=== PATIENT | male | born 1980 | race Hispanic/Latino ===

== ENCOUNTER 2018-11-22 21:14 | Emergency (ER) | payer SELFPAY ==
--- NOTE | 2018-11-22 21:21 | Emergency Department Report ---
Blank Doc - Documentation Documentation: This is a 38-year-old male that presents with SI. Denies HI. Denies having a plan. This initial assessment/diagnostic orders/clinical plan/treatment(s) is/are subject to change based on patient's health status, clinical progression and re- assessment by fellow clinical providers in the ED. Further treatment and workup at subsequent clinical providers discretion. Patient/guardians urged not to elope from the ED as their condition may be serious if not clinically assessed and managed. Initial orders include: 1- Patient sent to MAIN ED for further evaluation and treatment 2- claims administrator was notified to have patient be brought back [facility]. 3- RN was notified to keep patient as close range and observation until room available 4- Patient presents with substantial risk of imminent harm to self, appears to be so unable to care for his/her own physical health and safety as to create an imminently life-endangering crisis, and has committed/expressed life endangering crisis to self. Due to this and other complaints, patient is put on 1013.
[2018-11-22 21:43] LABS: Basophils # (Auto) 0.1 K/mm3 (0.0-0.1); Basophils % (Auto) 0.9 % (0.0-1.8); Eosinophils # (Auto) 0.1 K/mm3 (0.0-0.4); Eosinophils % (Auto) 1.6 % (0.0-4.3); Hematocrit 40.8 % (35.5-45.6); Hemoglobin 13.6 gm/dl (11.8-15.2); Lymphocytes # (Auto) 3.3 K/mm3 (1.2-5.4); Lymphocytes % (Auto) 44.5 % (13.4-35.0); Mean Corpuscular HGB Conc 33 % (32-34); Mean Corpuscular Volume 84 fl (84-94); Monocytes # (Auto) 0.6 K/mm3 (0.0-0.8); Monocytes % (Auto) 8.3 % (0.0-7.3); Platelet Count 258 K/mm3 (140-440); Red Blood Count 4.86 M/mm3 (3.65-5.03); Red Cell Distribution Width 14.4 % (13.2-15.2)
--- NOTE | 2018-11-22 22:03 | Emergency Department Report ---
ED Psych HPI - General Chief Complaint: Psych Stated Complaint: MH Time Seen by Provider: 11/22/18 21:20 Source: patient Mode of arrival: Ambulatory Limitations: No Limitations - History of Present Illness Initial Comments: 38-year-old male with a past medical history of bipolar disorder off medications for 2 months presents complaining of auditory hallucinations and suicidal ideation. Patient has been suicidal 1 day. He is hearing voices as a negative things to him. He has no plan and denies previous suicide attempt. Patient also states he suffers from social anxiety and has bad anxiety attacks. He denies any physical complaints at this time. Pt states he does have a place to live and is not homeless - Related Data Home Medications Medication Instructions Recorded Confirmed Last Taken Dextroamphetamine/Amphetamine 20 mg PO DAILY 11/22/18 11/22/18 Unknown [Adderall] FLUoxetine HCL [PROzac] 80 mg PO QDAY 11/22/18 11/22/18 Unknown clonazePAM [Klonopin] 0.5 mg PO BID 11/22/18 11/22/18 Unknown Allergies Allergy/AdvReac Type Severity Reaction Status Date / Time No Known Allergies Allergy Unverified 11/22/18 21:21 ED Review of Systems ROS: Stated complaint: MH Other details as noted in HPI Comment: All other systems reviewed and negative ED Past Medical Hx - Past Medical History Previous Medical History?: Yes Hx Psychiatric Treatment: Yes (Bipolar) - Surgical History Past Surgical History?: No - Social History Smoking Status: Unknown if ever smoked Substance Use Type: None - Medications Home Medications: Home Medications Medication Instructions Recorded Confirmed Last Taken Type Dextroamphetamine/Amphetamine 20 mg PO DAILY 11/22/18 11/22/18 Unknown History [Adderall] FLUoxetine HCL [PROzac] 80 mg PO QDAY 11/22/18 11/22/18 Unknown History clonazePAM [Klonopin] 0.5 mg PO BID 11/22/18 11/22/18 Unknown History ED Physical Exam - General Limitations: No Limitations - Other Other exam information: General: No limitations, patient is alert in no acute distress Head exam: Atraumatic, normocephalic Eyes exam: Normal appearance ENT: Moist mucous membrane Neck exam: Normal inspection, full range of motion, no meningismus nontender Respiratory exam: Very minimal end expiratory wheezing, no shortness of breath o r respiratory distress Cardiovascular: Normal rate and rhythm, normal heart sounds Abdomen: Soft, nondistended, and nontender, with normal bowel sounds, no rebound, or guarding Extremity: Full range of motion normal inspection no deformity Back: Normal Inspection, full range of motion, no tenderness Neurologic: Alert, oriented x3, cranial nerves intact, no motor or sensory deficit Psychiatric: normal affect, normal mood Skin: Warm, dry, intact ED Course Vital Signs 11/22/18 11/22/18 21:20 22:05 Temperature 97.7 F 98.1 F Pulse Rate 73 61 Respiratory 18 20 Rate Blood Pressure 148/100 Blood Pressure 112/71 [Right] O2 Sat by Pulse 99 99 Oximetry ED Medical Decision Making - Lab Data Result diagrams: 11/22/18 21:30 11/22/18 21:30 Lab Results 11/22/18 11/22/18 11/22/18 Range/Units 21:30 21:30 21:30 WBC 7.5 (4.5-11.0) K/mm3 RBC 4.86 (3.65-5.03) M/mm3 Hgb 13.6 (11.8-15.2) gm/dl Hct 40.8 (35.5-45.6) % MCV 84 (84-94) fl MCH 28 (28-32) pg MCHC 33 (32-34) % RDW 14.4 (13.2-15.2) % Plt Count 258 (140-440) K/mm3 Lymph % (Auto) 44.5 H (13.4-35.0) % [place] % (Auto) 8.3 H (0.0-7.3) % Eos % (Auto) 1.6 (0.0-4.3) % Baso % (Auto) 0.9 (0.0-1.8) % Lymph # 3.3 (1.2-5.4) K/mm3 [place] # 0.6 (0.0-0.8) K/mm3 Eos # 0.1 (0.0-0.4) K/mm3 Baso # 0.1 (0.0-0.1) K/mm3 Seg Neutrophils % 44.7 (40.0-70.0) % Seg Neutrophils # 3.3 (1.8-7.7) K/mm3 Sodium 140 (137-145) mmol/L Potassium 3.7 (3.6-5.0) mmol/L Chloride 100.6 (98-107) mmol/L Carbon Dioxide 26 (22-30) mmol/L Anion Gap 17 mmol/L BUN 15 (9-20) mg/dL Creatinine 0.9 (0.8-1.5) mg/dL Estimated GFR > 60 ml/min BUN/Creatinine Ratio 17 % Glucose 101 H (75-100) mg/dL Calcium 9.0 (8.4-10.2) mg/dL Urine Color (Yellow) Urine Turbidity (Clear) Urine pH (5.0-7.0) Ur Specific [place] (1.003-1.030) Urine Protein (Negative) mg/dL Urine Glucose (UA) (Negative) mg/dL Urine Ketones (Negative) mg/dL Urine Blood (Negative) Urine Nitrite (Negative) Urine Bilirubin (Negative) Urine Urobilinogen (<2.0) mg/dL Ur Leukocyte Esterase (Negative) Urine WBC (Auto) (0.0-6.0) /HPF Urine RBC (Auto) (0.0-6.0) /HPF Urine Mucus /HPF Salicylates < 0.3 L (2.8-20.0) mg/dL Urine Opiates Screen Urine Methadone Screen Acetaminophen (10.0-30.0) ug/mL Ur Barbiturates Screen Ur Phencyclidine Scrn Ur Amphetamines Screen U Benzodiazepines Scrn Urine Cocaine Screen U Marijuana (THC) Screen Drugs of Abuse Note Plasma/Serum Alcohol (0-0.07) % 11/22/18 11/22/18 11/22/18 Range/Units 21:30 21:30 21:45 WBC (4.5-11.0) K/mm3 RBC (3.65-5.03) M/mm3 Hgb (11.8-15.2) gm/dl Hct (35.5-45.6) % MCV (84-94) fl MCH (28-32) pg MCHC (32-34) % RDW (13.2-15.2) % Plt Count (140-440) K/mm3 Lymph % (Auto) (13.4-35.0) % [place] % (Auto) (0.0-7.3) % Eos % (Auto) (0.0-4.3) % Baso % (Auto) (0.0-1.8) % Lymph # (1.2-5.4) K/mm3 [place] # (0.0-0.8) K/mm3 Eos # (0.0-0.4) K/mm3 Baso # (0.0-0.1) K/mm3 Seg Neutrophils % (40.0-70.0) % Seg Neutrophils # (1.8-7.7) K/mm3 Sodium (137-145) mmol/L Potassium (3.6-5.0) mmol/L Chloride (98-107) mmol/L Carbon Dioxide (22-30) mmol/L Anion Gap mmol/L BUN (9-20) mg/dL Creatinine (0.8-1.5) mg/dL Estimated GFR ml/min BUN/Creatinine Ratio % Glucose (75-100) mg/dL Calcium (8.4-10.2) mg/dL Urine Color [place] (Yellow) Urine Turbidity Clear (Clear) Urine pH 5.0 (5.0-7.0) Ur Specific [place] 1.027 (1.003-1.030) Urine Protein <15 mg/dl (Negative) mg/dL Urine Glucose (UA) Neg (Negative) mg/dL Urine Ketones Neg (Negative) mg/dL Urine Blood Neg (Negative) Urine Nitrite Neg (Negative) Urine Bilirubin Neg (Negative) Urine Urobilinogen 2.0 (<2.0) mg/dL Ur Leukocyte Esterase Neg (Negative) Urine WBC (Auto) 14.0 H (0.0-6.0) /HPF Urine RBC (Auto) 4.0 (0.0-6.0) /HPF Urine Mucus 3+ /HPF Salicylates (2.8-20.0) mg/dL Urine Opiates Screen Urine Methadone Screen Acetaminophen < 5.0 L (10.0-30.0) ug/mL Ur Barbiturates Screen Ur Phencyclidine Scrn Ur Amphetamines Screen U Benzodiazepines Scrn Urine Cocaine Screen U Marijuana (THC) Screen Drugs of Abuse Note Plasma/Serum Alcohol < 0.01 (0-0.07) % 11/22/18 Range/Units 21:45 WBC (4.5-11.0) K/mm3 RBC (3.65-5.03) M/mm3 Hgb (11.8-15.2) gm/dl Hct (35.5-45.6) % MCV (84-94) fl MCH (28-32) pg MCHC (32-34) % RDW (13.2-15.2) % Plt Count (140-440) K/mm3 Lymph % (Auto) (13.4-35.0) % [place] % (Auto) (0.0-7.3) % Eos % (Auto) (0.0-4.3) % Baso % (Auto) (0.0-1.8) % Lymph # (1.2-5.4) K/mm3 [place] # (0.0-0.8) K/mm3 Eos # (0.0-0.4) K/mm3 Baso # (0.0-0.1) K/mm3 Seg Neutrophils % (40.0-70.0) % Seg Neutrophils # (1.8-7.7) K/mm3 Sodium (137-145) mmol/L Potassium (3.6-5.0) mmol/L Chloride (98-107) mmol/L Carbon Dioxide (22-30) mmol/L Anion Gap mmol/L BUN (9-20) mg/dL Creatinine (0.8-1.5) mg/dL Estimated GFR ml/min BUN/Creatinine Ratio % Glucose (75-100) mg/dL Calcium (8.4-10.2) mg/dL Urine Color (Yellow) Urine Turbidity (Clear) Urine pH (5.0-7.0) Ur Specific [place] (1.003-1.030) Urine Protein (Negative) mg/dL Urine Glucose (UA) (Negative) mg/dL Urine Ketones (Negative) mg/dL Urine Blood (Negative) Urine Nitrite (Negative) Urine Bilirubin (Negative) Urine Urobilinogen (<2.0) mg/dL Ur Leukocyte Esterase (Negative) Urine WBC (Auto) (0.0-6.0) /HPF Urine RBC (Auto) (0.0-6.0) /HPF Urine Mucus /HPF Salicylates (2.8-20.0) mg/dL Urine Opiates Screen Presumptive negative Urine Methadone Screen Presumptive negative Acetaminophen (10.0-30.0) ug/mL Ur Barbiturates Screen Presumptive negative Ur Phencyclidine Scrn Presumptive negative Ur Amphetamines Screen Presumptive positive U Benzodiazepines Scrn Presumptive positive Urine Cocaine Screen Presumptive negative U Marijuana (THC) Screen Presumptive positive Drugs of Abuse Note Disclamer Plasma/Serum Alcohol (0-0.07) % - Medical Decision Making noncompliance with meds psychosis with si 1013/transfer form signed + drug abuse based on uds ua with wbc, tx with Rocephin and azithromycin to cover for STD associated urethritis and will continue Bactrim for 5 days for UTI based on age Patient medically cleared for admission - Differential Diagnosis psychosis, bipolar, suicidal, noncompliant Critical Care Time: No Critical care attestation.: If time is entered above; I have spent that time in minutes in the direct care of this critically ill patient, excluding procedure time. ED Disposition Clinical Impression: Bipolar disorder, Noncompliance with medication regimen, Methamphetamine abuse, Suicidal ideation, Medical clearance for psychiatric admission, UTI (urinary tract infection) Disposition: DC/TX-65 PSY HOSP/PSY UNIT Is pt being admited?: No Condition: Stable Time of Disposition: 23:33 (awaiting acceptance)
[2018-11-22 22:09] LABS: Bilirubin,Urine NEG (Negative); Blood,Urine NEG (Negative); Color,Urine Amber (Yellow); Mucus,Urine 3+ /HPF; Protein,Urine <15 mg/dL mg/dL (Negative)
[2018-11-22 22:09] LABS: BUN/Creatinine Ratio 17; Blood Urea Nitrogen 15 mg/dL (9-20); Hemolysis Index 4
[2018-11-22 22:16] LABS: Cocaine Screen,Urine PRESUMPTIVE NEGATIVE; Methadone Screen,Urine PRESUMPTIVE NEGATIVE; Opiate Screen,Urine PRESUMPTIVE NEGATIVE
[2018-11-22 22:34] LABS: Amphetamine Screen,Urine PRESUMPTIVE POSITIVE; Benzodiazepines Screen,Urine PRESUMPTIVE POSITIVE; Cannabinoid Screen,Urine PRESUMPTIVE POSITIVE
[2018-11-22] MEDS ORDERED: ROCEPHIN IM ONE (23:31)
[2018-11-22] MEDS ORDERED: ZITHROMAX PO ONE (23:31)
[2018-11-22] MEDS ORDERED: XYLOCAINE 1% MPF 5 mL INFILTRATI ONE (23:31)
--- NOTE | 2018-11-23 11:25 | Consultation ---
History of Present Illness - Reason for Consult Consult date: 11/23/18 Reason for consult: Mental Health EValuation Requesting physician: BRUNO ELIZABETH - Chief Complaint Chief complaint: I was suicidal" - History of Present Psychiatric Illness 38 y.o. white male who presented to the ER for Si's and anxiety. Today the patient is calm and cooperative during the assessment. He stated that he was having a hard time was his anxiety yesterday and felt suicidal. He stated that he went to [place] first, but he was never seen so he came to [facility]'s ER. He stated that he has a hx of social anxiety and depression and take Klonopin (BID for the past 6 months) and Prozac. He stated that he has a psychiatrist in [place], [place] but cannot attend his scheduled appts because he does not have insurance. He stated that he is anxious about not having a plan to address his mental health. He rate his anxiety/depression 6/10, with 10 being the worse. He stated, "I'm not suicidal now, just anxious." He denies SI/HI's and AVH's. He denies a poor appetite, but acknowledged that he cannot stay sleep. He denies any manic episodes in the past. He denies alcohol consumption (etoh), but admitted to smoking marijuana to self medicate to lower his anxiety. Medications and Allergies Allergies Allergy/AdvReac Type Severity Reaction Status Date / Time No Known Allergies Allergy Unverified 11/22/18 21:21 Home Medications Medication Instructions Recorded Confirmed Last Taken Type Dextroamphetamine/Amphetamine 20 mg PO DAILY 11/22/18 11/22/18 Unknown History [Adderall] FLUoxetine HCL [PROzac] 80 mg PO QDAY 11/22/18 11/22/18 Unknown History clonazePAM [Klonopin] 0.5 mg PO BID 11/22/18 11/22/18 Unknown History Active Meds: Active Medications Clonazepam (Klonopin) 0.5 mg PO BID ADIN Fluoxetine HCl (Prozac) 20 mg PO DAILY ADIN Trimethoprim/Sulfamethoxazole (Bactrim Ds) 1 each PO Q12HR ADIN Stop: 11/28/18 09:59 Past psychiatric history - Past Medical History Past Medical History: No medical history Past Surgical History: No surgical history - past Psychiatric treatment and history psychiatric treatment history: Hx of anxiety/Depression/Substance Abuse. Fam hx of depression. - Social History Social history: lives with family Mental Status Exam - Vital signs Last Vital Signs Temp 97.9 F 11/23/18 09:03 Pulse 97 H 11/23/18 09:03 Resp 18 11/23/18 09:03 BP 109/62 11/23/18 09:03 Pulse Ox 98 11/23/18 09:03 - Exam Narrative exam: MSE: Appearance: calm, cooperative Behavior: regular eye contact Speech: regular rate and tone Mood: "anxious" Affect: congruent to mood Thought Process: circumstantial l Thought Content: denies SI/HI's and AVH's Motor Activity: lying in bed Cognition: A/O x3 Insight: fair Judgment: variable to fair Results Result Diagrams: 11/22/18 21:30 11/22/18 21:30 Abnormal lab results 11/22/18 11/22/18 11/22/18 Range/Units 21:30 21:30 21:30 Lymph % (Auto) 44.5 H (13.4-35.0) % [place] % (Auto) 8.3 H (0.0-7.3) % Glucose 101 H (75-100) mg/dL Urine WBC (Auto) (0.0-6.0) /HPF Salicylates < 0.3 L (2.8-20.0) mg/dL Acetaminophen (10.0-30.0) ug/mL 11/22/18 11/22/18 Range/Units 21:30 21:45 Lymph % (Auto) (13.4-35.0) % [place] % (Auto) (0.0-7.3) % Glucose (75-100) mg/dL Urine WBC (Auto) 14.0 H (0.0-6.0) /HPF Salicylates (2.8-20.0) mg/dL Acetaminophen < 5.0 L (10.0-30.0) ug/mL All other labs normal. Assessment and Plan Assessment and plan: Impression: MDD. Social Anxiety DO. Cannabis Use DO. Today the patient is calm and cooperative during the assessment. The patient is positive for benzos. DDx: Substance Induced Mood DO Recommendation/Plan: Reevaluate 1013 in 24 hours. Start home medications Prozac 20 mg PO daily for depression/anxiety and Klonopin 0.5 mg PO BID for anxiety. Discussed possible suicidality/medication induced navid with the patient reference Sandra. Dispo: If the patient's 1013 is rescinded in 24 hours, he can follow up with [facility] for outpatient psy services. Will staff with Dr Wayne Disal.
[2018-11-23] MEDS: BACTRIM DS PO SCH ×2 (11:40→21:59)
[2018-11-23] MEDS: PROzac PO SCH (12:00)
--- NOTE | 2018-11-24 11:06 | Progress Note ---
Subjective - Reason for Consult Consult date: 11/24/18 Reason for consult: Psychiatry Follow-up - Chief Complaint Chief complaint: I feel better" 38 y.o. white male who presented to the ER for Si's and anxiety. Today the patient is calm and cooperative during the assessment. He stated that he feels much better today. He stated that he did some reflecting about his life and plan to make better decisions reference his recreational drug use. He stated that he will follow up with [facility] for outpatient psy services. He stated that his anxiety is "manageable" today. He denies SI/HI's and AVH's. He denies any side effects of his medications. Mental Status Exam - Vital signs Last Vital Signs Temp 98.5 F 11/23/18 19:35 Pulse 55 L 11/23/18 19:35 Resp 16 11/23/18 19:35 BP 97/53 11/23/18 19:35 Pulse Ox 97 11/23/18 19:35 - Exam Narrative exam: MSE: Appearance: calm, cooperative Behavior: regular eye contact Speech: regular rate and tone Mood: "better" Affect: congruent to mood Thought Process: linear Thought Content: denies SI/HI's and AVH's Motor Activity: lying in bed Cognition: A/O x3 Insight: appropriate Judgment: appropriate Assessment and Plan Impression: MDD. Social Anxiety DO. Cannabis Use DO. Today the patient is calm and cooperative during the assessment. The patient is positive for benzos. The patient is no threat to self. DDx: Substance Induced Mood DO Recommendation/Plan: Rescind 1013, continue Prozac 20 mg PO daily for depression/anxiety, and Klonopin 0.5 mg PO BID for anxiety. Discussed possible suicidality/medication induced navid with the patient reference Prozac. Discussed the importance to abstain from recreational drug use. Dispo: The patient can follow up with [facility] for outpatient psy services. Will staff with Dr Wayne Disla.
[2018-11-24] MEDS: PROzac PO SCH (11:18)
[2018-11-24] MEDS: BACTRIM DS PO SCH (11:18)
[2018-11-24 13:13] VITALS: BP 99/68
== END 2018-11-24 14:08 | disposition home or self-care (01) ==
LOC: ED 21:14 → EEVIPCON 21:14 → ED 11-24 14:08
DX: F31.9 Bipolar disorder, unspecified (principal); N39.0 Urinary tract infection, site not specified; F15.10 Other stimulant abuse, uncomplicated; F12.10 Cannabis abuse, uncomplicated
CPT/HCPCS: 36415; 80048; 80307; 81001; 85025; 96372; 99284; G0480; J0696; 80320